=== PATIENT | female | born 1965 | race Caucasian/White ===

== ENCOUNTER 2017-01-25 16:41 | Emergency (ER) | payer BC, OTHER ==
[~2017-01-25] VITALS: Ht 157.5 cm; Wt 64.8 kg
[~2017-01-25 16:41] MED LIST: AMLO1CAP5 PO; ASPI-515 PO; METF100010 PO
[2017-01-25] MEDS ORDERED: ONDANSETRON 2MG/ML, 2ML IVPush ONE (17:30)
[2017-01-25] MEDS ORDERED: SODIUM CHLORIDE 0.9% 1,000ML IVBOLUS ONE (17:30)
[2017-01-25] MEDS ORDERED: FAMOTIDINE 20 MG/2 ML IVP ONE (17:30)
[2017-01-25] MEDS ORDERED: MAALOX/HYOSCYAMINE/LIDOCAINE 45 ML BOTTLE PO ONE (17:30)
[2017-01-25] MEDS ORDERED: PRAV40TA PO (17:48)
[2017-01-25] MEDS ORDERED: HYDR25TA6 PO (17:48)
[2017-01-25 17:54] LABS: ASPARTATE AMINO TRANSFERASE 23 U/L (15-37); BLOOD UREA NITROGEN 15 mg/dL (7-18)
[2017-01-25] MEDS ORDERED: HYDROmorphone 1 MG/ML, 1ML IVPush PRN (18:00)
[2017-01-25] MEDS ORDERED: MAALOX/HYOSCYAMINE/LIDOCAINE 45 ML BOTTLE ONE (18:07)
[2017-01-25] MEDS ORDERED: HYDROmorphone 1 MG/ML, 1ML ONE (18:07)
[2017-01-25] MEDS ORDERED: ONDANSETRON 2MG/ML, 2ML ONE (18:07)
[2017-01-25] MEDS ORDERED: FAMOTIDINE 20 MG/2 ML ONE (18:08)
[2017-01-25 18:27] LABS: PATH.CAST-FLAG NOT PRESENT; SPERM-FLAG NOT PRESENT; SRC-FLAG NOT PRESENT; XTAL-FLAG NOT PRESENT; YLC-FLAG NOT PRESENT
[2017-01-25 20:41] VITALS: BP 127/76
== END 2017-01-25 20:47 | disposition home or self-care (01) ==
LOC: ED 18:36
DX: R10.9 Unspecified abdominal pain (principal); E86.0 Dehydration; R45.851 Suicidal ideations; I10 Essential (primary) hypertension; E11.9 Type 2 diabetes mellitus without complications; Z90.49 Acquired absence of other specified parts of digestive tract; Z88.5 Allergy status to narcotic agent
CPT/HCPCS: 36415; 71010; 76700; 80053; 81001; 83690; 85025; 86677; 87086; 96361; 96374; 96375; 99285; J1170; J2405; J7030; S0028

== ENCOUNTER 2017-02-23 23:27 | Emergency (ER) | payer BC, OTHER ==
[~2017-02-23] VITALS: Ht 157.5 cm; Wt 62.4 kg
[~2017-02-23 23:27] MED LIST changes: +HYDR25TA6 PO; +PRAV40TA PO
[2017-02-24] MEDS ORDERED: SODIUM CHLORIDE 0.9% 1,000ML IVBOLUS ONE
[2017-02-24] MEDS ORDERED: ONDANSETRON 2MG/ML, 2ML IVPush ONE
[2017-02-24] MEDS ORDERED: FAMOTIDINE 20 MG/2 ML IVP ONE
[2017-02-24] MEDS ORDERED: SODIUM CHLORIDE FLUSH 10ML SYR IVF ONE
[2017-02-24] MEDS ORDERED: HYDROmorphone 1 MG/ML, 1ML ONE (00:13)
[2017-02-24] MEDS ORDERED: FAMOTIDINE 20 MG/2 ML ONE (00:14)
[2017-02-24] MEDS ORDERED: ONDANSETRON 2MG/ML, 2ML ONE (00:14)
[2017-02-24 00:27] LABS: BLOOD UREA NITROGEN 17 mg/dL (7-18)
[2017-02-24] MEDS ORDERED: MORPHINE SULFATE 4 MG/ML, 1ML IVPush PRN (00:30)
[2017-02-24 00:31] LABS: ASPARTATE AMINO TRANSFERASE 25 U/L (15-37)
[2017-02-24] MEDS ORDERED: HYDROmorphone 1 MG/ML, 1ML IVPush PRN (01:00)
[2017-02-24] MEDS ORDERED: methylPREDNISolone SOD SUCC 125 MG/2 ML ONE (01:08)
[2017-02-24] MEDS ORDERED: DIPHENHYDRAMINE 50 MG/ML, 1ML ONE (01:08)
[2017-02-24] MEDS ORDERED: methylPREDNISolone SOD SUCC 125 MG/2 ML IVPush ONE (01:30)
[2017-02-24] MEDS ORDERED: DIPHENHYDRAMINE 50 MG/ML, 1ML IVPush ONE (01:30)
[2017-02-24 02:01] VITALS: BP 120/84
[2017-02-24] MEDS ORDERED: OMNIPAQUE 350 MG/ML, 100ML BOTTLE ONE (02:28)
== END 2017-02-24 02:25 | disposition home or self-care (01) ==
LOC: ED 23:59
DX: R10.11 Right upper quadrant pain (principal); R10.13 Epigastric pain; R10.12 Left upper quadrant pain; R11.2 Nausea with vomiting, unspecified; E11.9 Type 2 diabetes mellitus without complications; I10 Essential (primary) hypertension; K21.9 Gastro-esophageal reflux disease without esophagitis; Z87.891 Personal history of nicotine dependence
CPT/HCPCS: 36415; 74177; 80053; 83690; 85025; 93005; 96361; 96374; 96375; 99285; J1170; J1200; J2405; J2930; J7030; Q9967; S0028